=== PATIENT | female | born 1960 | race Caucasian/White ===

== ENCOUNTER 2018-01-25 09:56 | Emergency (ER) | payer MEDICARE ==
[2018-01-25 10:45] VITALS: BP 146/80
--- NOTE | 2018-01-25 11:29 | UC ---
Lower Extremity/Ankle HPI - HPI Summary HPI Summary: 57 year old female with history of type 2 DM presents with right foot pain, redness, swelling, and bruising after dropping a 14 lb bottle of detergent on her foot 8 days ago. States she was able to bear weight immediately after injury. Note bruising and swelling to dorsum of foot immediately after injury. States 3 days after injury she was doing alot of ambulating and noted rubbing of her shoe to the top of her foot causing a superficial abrasion. 3 days ago started developing redness and increased swelling of the foot. Denies fever, chills, calf swelling or tenderness, CP, SOB, drainage, numbness or tingling of foot. - History of Current Complaint Chief Complaint: UCLowerExtremity Stated Complaint: RIGHT FOOT COMPLAINT Time Seen by Provider: 01/25/18 11:02 Hx Obtained From: Patient Severity Currently: Mild Pain Intensity: 0 Aggravating Factor(s): Ambulation Alleviating Factor(s): Elevation Able to Bear Weight: Yes - Allergies/Home Medications Allergies/Adverse Reactions: Allergies Allergy/AdvReac Type Severity Reaction Status Date / Time amoxicillin [From Augmentin] Allergy Itching Verified 01/25/18 10:34 clavulanic acid Allergy Itching Verified 01/25/18 10:34 [From Augmentin] Sulfa (Sulfonamide Allergy Rash Verified 01/25/18 10:34 Antibiotics) Home Medications: Home Medications Biotin 1 mg PO DAILY 01/25/18 [History Confirmed 01/25/18] Cetirizine* [ZyrTEC 10 MG TAB*] 10 mg PO DAILY 01/25/18 [History Confirmed 01/25] Levothyroxine TAB* [Synthroid TAB*] 150 mcg PO 0600 01/25/18 [History Confirmed 01/25/18] glipiZIDE TAB* [Glucotrol TAB*] 10 mg PO DAILY 01/25/18 [History Confirmed 01/25] metFORMIN* [Glucophage 850 MG TAB *] 850 mg PO 0800,1700 01/25/18 [History Confirmed 01/25/18] PMH/Surg Hx/FS Hx/Imm Hx Endocrine History: Diabetes, Thyroid Disease - Surgical History Surgical History: Yes Surgery Procedure, Year, and Place: bilateral hand surgery - Family History Family History: Noncontributory - Social History Occupation: Employed Full-time Lives: With Family Alcohol Use: None Substance Use Type: None Smoking Status (MU): Never Smoked Tobacco Review of Systems Constitutional: Negative Skin: Other - See HPI Respiratory: Negative Cardiovascular: Negative Motor: Negative Neurovascular: Negative Musculoskeletal: Other: - See HPI Is Patient Immunocompromised?: No All Other Systems Reviewed And Are Negative: Yes Physical Exam Triage Information Reviewed: Yes Appearance: Well-Appearing, No Pain Distress, Obese Vital Signs: Initial Vital Signs Temp 97.5 F 01/25/18 10:33 Pulse 100 01/25/18 10:33 Resp 17 01/25/18 10:33 BP 146/80 01/25/18 10:33 Pulse Ox 99 01/25/18 10:33 Respiratory: Positive: Lungs clear, Normal breath sounds, No respiratory distress Cardiovascular: Positive: RRR, No Murmur, Pulses Normal, Brisk Capillary Refill Musculoskeletal: Positive: Strength Intact, ROM Intact, Other: - Swelling to dorsum of right foot. Neurological: Positive: Alert, Other: - Sensation intact distally Skin: Positive: Other - Eccymosis to lateral, dorsal right foot. Superficial abrasion with crusting to dorsal right foot with surrounding erythema approximately 5 cm in diameter. Diagnostics - Radiology No standard instances Xray Interpretation: No Acute Changes Radiology Interpretation Completed By: Radiologist - Order Information: FOOT RIGHT 3+ VWS Accession Number: [id number] CPT: 33689 INDICATION: Right lateral foot pain since a crush injury 5 days earlier COMPARISON: None. TECHNIQUE: 3 views of the right foot were obtained. FINDINGS: The adequately corticated bones are properly aligned. Joint spaces appear maintained. No fracture, dislocation or focal bony abnormality is seen. There are series of well- circumscribed calcifications overlying the proximal plantar fascia on the lateral view. There is an enthesophyte at the origin the plantar fascia on the calcaneal tubercle. IMPRESSION: DEGENERATIVE CHANGES DESCRIBED ABOVE WITHOUT RADIOGRAPHICALLY APPARENT FRACTURE OR DISLOCATION. Lower Extremity Course/Dx - Course Course Of Treatment: 57 year old female with history of type 2 DM presents with redness, swelling, and pain to right foot after dropping a large bottle of laundry detergent on her foot 8 days ago. She initially had some mild swelling and bruising to the foot but developed an abrasion to the dorsal aspect of her foot from rubbing on her shoe while ambulating. Exam revealed area of excoration with erythema consistent with cellulitis. X-ray of foot was negative for fracture. She has reported allergies to Augmentin and Sulfa therefore will treat with course of clindamycin. She is to follow up with her PCP within 3-5 days for wound check. Warning symptoms reviewed. Verbalizes understanding and agrees with POC. - Differential Dx/Diagnosis Differential Diagnosis/HQI/PQRI: Cellulitis, Contusion, Fracture (Closed) Provider Diagnoses: cellulitis right foot Discharge - Sign-Out/Discharge Documenting (check all that apply): Patient Departure All imaging exams completed and their final reports reviewed: Yes - Discharge Plan Condition: Stable Disposition: HOME Prescriptions: Clindamycin HCl 300 mg PO TID #21 capsule Fluconazole [Diflucan 150 MG (NF)] 150 mg PO ONCE #1 tab Patient Education Materials: Cellulitis (ED) Forms: *Work Release Referrals: Estrella Spencer MD [Primary Care Provider] - 5 Days (Follow up in 3-5 days for recheck) Additional Instructions: The x-ray of her foot was performed in the clinic today was reviewed by the radiologist and no fracture or dislocation was seen. I suspect that the swelling of her foot is related to a cellulitis which is an infection of the skin tissues. Start clindamycin one capsule 3 times a day for 7 days to treat the infection. Be sure to be sure to finish the entire prescription even if her symptoms are better. Rest the foot as much as possible. Keep the foot elevated to help reduce any swelling. You may take acetaminophen (Tylenol) according to directions as needed for any aches or pain. You should follow-up with your primary care provider within the next 3-5 days for recheck of the cellulitis. Your blood pressure was elevated in the clinic today therefore is recommended that you have this rechecked as well by your primary care provider. Seek immediate medical attention in the emergency room if you develop any fever greater than 100.5 F, worsening pain, increased swelling, calf pain or swelling , chest pain, shortness of breath, or any worsening of symptoms. - Billing Disposition and Condition Condition: STABLE Disposition: Home - Attestation Statements Provider Attestation: I was available for consult. This patient was seen by the JULIO. The patient was not presented to, seen by, or examined by me. -Rocio
--- NOTE | 2018-01-25 11:48 | RAD ---
INDICATION: Right lateral foot pain since a crush injury 5 days earlier COMPARISON: None. TECHNIQUE: 3 views of the right foot were obtained. FINDINGS: The adequately corticated bones are properly aligned. Joint spaces appear maintained. No fracture, dislocation or focal bony abnormality is seen. There are series of well-circumscribed calcifications overlying the proximal plantar fascia on the lateral view. There is an enthesophyte at the origin the plantar fascia on the calcaneal tubercle. IMPRESSION: DEGENERATIVE CHANGES DESCRIBED ABOVE WITHOUT RADIOGRAPHICALLY APPARENT FRACTURE OR DISLOCATION. If the patient's symptoms persist, follow-up imaging is recommended.
== END 2018-01-25 12:08 | disposition home or self-care (01) ==
LOC: UCCORT 09:56
DX: L03.115 Cellulitis of right lower limb (principal); E11.9 Type 2 diabetes mellitus without complications; E07.9 Disorder of thyroid, unspecified; Z79.84 Long term (current) use of oral hypoglycemic drugs; Z88.1 Allergy status to other antibiotic agents
CPT/HCPCS: 99202; G0463